=== PATIENT | male | born 1945 | race Caucasian/White ===

== ENCOUNTER 2017-10-13 00:43 | Inpatient (IN) | payer OTHER ==
[2017-10-13] VITALS (15 sets, daily range): BP systolic 73–152; BP diastolic 57–106
[~2017-10-13] VITALS: Ht 167.6 cm; Wt 135.9 kg
[~2017-10-13 00:43] MED LIST: ADVAIR 250/501 DISK IH; ALTACE10 MG PO; ATORVASTATIN CA40 MG PO; Aspirin E.C. PO; DIGOXIN125 MCG PO; Habitrol,Nicoderm CQ TD; LEXAPRO10 MG PO; Levaquin PO; NAVANE5 MG PO; PROVENTIL HFA6.7 GM IH; RANITIDINE HCL300 MG PO; SPIRIVA1 INHALATI IH; predniSONE PO
[2017-10-13 01:57] LABS: HEMATOCRIT 44.6 % (38.0-50.0); MCH 30.4 PG (29.0-34.0); MCHC 31.4 G/DL (30.0-36.0); PLATELET COUNT 190 K/uL (156-360); RBC DIS.WIDTH-CV 13.3 % (11.8-14.6); WHITE BLOOD COUNT 12.6 K/uL (4.1-10.2)
[2017-10-13 02:08] LABS: ALBUMIN 3.8 g/dL (3.2-4.8); CHLORIDE 99 mEq/L (99-109); POTASSIUM 4.4 mEq/L (3.7-5.4); SODIUM 137 mEq/L (136-147)
[2017-10-13 02:09] LABS: MAGNESIUM 2.5 mg/dL (1.3-2.7)
[2017-10-13 02:11] LABS: GLUCOSE 205 mg/dL (70-99); TOTAL PROTEIN 6.7 g/dL (6.4-8.3)
[2017-10-13 02:13] LABS: TOTAL BILIRUBIN 0.5 mg/dL (0.0-1.0)
[2017-10-13 02:14] LABS: ALKALINE PHOSPHATASE 116 IU/L (3-129)
[2017-10-13 02:15] LABS: CREATININE 1.2 mg/dL (0.6-1.3); GFR ESTIMATE (CALCULATED) > 59 mL/min/ (58.99-99999)
[2017-10-13 02:16] LABS: AST (GOT) 32 IU/L (2-34); UREA NITROGEN (BUN) 12 mg/dL (9-23)
[2017-10-13 02:17] LABS: ALT (GPT) 29 IU/L (3-49)
[2017-10-13 02:18] LABS: CREATINE KINASE 257 IU/L (1-294); LIPASE 6 U/L (1.0-51.0); TROP-I INTERPRETATION NEGATIVE; TROPONIN-I 0.06 ng/mL (0.0-0.30)
[2017-10-13 02:52] LABS: BASE EXCESS 1.3 mEq/L (-3 to +3); BICARBONATE 30.7 mEq/L (22-26); CARBOXY HGB 1.8 % (0-5); COMMENTS - BLOOD GASES C+A+; DEVICE NIV; FI02 100 %; METHEMOGLOBIN 1.2 % (0-1.5); MODE SPONT; PCO2 70 mm Hg (35-45); PEEP 8 CM/H20; PO2 498 mm Hg (80-100); PRES. SUPPORT 15 CM/H2O; SITE RR; TOTAL RESP RATE 21 resp/min; pH 7.25 (7.35-7.45)
[2017-10-13 05:47] LABS: COMMENTS - BLOOD GASES C+; DEVICE NIV; FI02 30 %; MODE SPONT; SITE RR; TOTAL RESP RATE 17 resp/min
[2017-10-13 05:49] LABS: PCO2 61 mm Hg (35-45); PO2 98 mm Hg (80-100); pH 7.29 (7.35-7.45)
[2017-10-13 05:50] LABS: BASE EXCESS 1.1 mEq/L (-3 to +3); BICARBONATE 29.3 mEq/L (22-26); CARBOXY HGB 1.6 % (0-5); METHEMOGLOBIN 1.4 % (0-1.5); O2 SATURATION (CALCULATED) 98.1 % (95-99)
[2017-10-13 23:29] LABS: APPEARANCE CLEAR ((CLEAR)); BILIRUBIN NEGATIVE; BLOOD LARGE; COLOR YELLOW ((YELLOW)); GLUCOSE (STRIP) NEGATIVE; KETONES NEGATIVE; LEUKOCYTES NEGATIVE; NITRITE NEGATIVE; PROTEIN (STRIP) 30; SPECIFIC GRAVITY 1.025 (1.000-1.030); UROBILINOGEN 0.2 MG/DL (0.2-1.0)
[2017-10-13 23:31] LABS: BACTERIA NONE SEEN /HPF; EPITHELIAL CELLS NONE SEEN /HPF; MUCUS TRACE /LPF; RED BLOOD CELLS 0-5 /HPF (0-5); WHITE BLOOD CELLS 0-5 /HPF (0-5)
[2017-10-14] VITALS (20 sets, daily range): BP systolic 94–149; BP diastolic 60–117
[2017-10-14 05:20] LABS: HEMATOCRIT 44.2 % (38.0-50.0); MCH 29.3 PG (29.0-34.0); MCHC 29.4 G/DL (30.0-36.0); MCV 99.5 FL (86-99); PLATELET COUNT 191 K/uL (156-360); RBC DIS.WIDTH-CV 13.5 % (11.8-14.6); RBC DIS.WIDTH-SD 50.1 % (39-53); RED BLOOD COUNT 4.44 M/uL (4.00-5.50); WHITE BLOOD COUNT 9.7 K/uL (4.1-10.2)
[2017-10-14 05:52] LABS: CHLORIDE 101 MEQ/L (99-109); CREATININE 1.3 MG/DL (0.6-1.3); GFR ESTIMATE (CALCULATED) 58 mL/min/ (58.99-99999); GLUCOSE 152 mg/dL (70-99); POTASSIUM 5.2 MEQ/L (3.7-5.4); SODIUM 137 MEQ/L (136-147); UREA NITROGEN (BUN) 23 mg/dL (9-23)
[2017-10-14 08:25] LABS: COMMENTS - BLOOD GASES A+C+; DEVICE NC; O2 FLOW 6 L/MIN; SITE RR; TOTAL RESP RATE 20 resp/min
[2017-10-14 08:26] LABS: BASE EXCESS -0.3 mEq/L (-3 to +3); BICARBONATE 29.8 mEq/L (22-26); CARBOXY HGB 1.5 % (0-5); METHEMOGLOBIN 1.2 % (0-1.5); O2 SATURATION (CALCULATED) 95.9 % (95-99); PCO2 78 mm Hg (35-45); PO2 70 mm Hg (80-100); pH 7.19 (7.35-7.45)
[2017-10-14 08:56] LABS: COMMENTS - BLOOD GASES A+C+; DEVICE 980; FI02 40 %; MODE NIV; PEEP 8 CM/H20; PRES. SUPPORT 15 CM/H2O; SITE RR; TOTAL RESP RATE 15 resp/min
[2017-10-14 08:57] LABS: BASE EXCESS 0.2 mEq/L (-3 to +3); BICARBONATE 29.9 mEq/L (22-26); CARBOXY HGB 1.6 % (0-5); METHEMOGLOBIN 0.8 % (0-1.5); PCO2 73 mm Hg (35-45); PO2 94 mm Hg (80-100); pH 7.22 (7.35-7.45)
[2017-10-14 12:23] LABS: HIGH-SENS C-REACTIVE PROTEIN > 8.00 MG/DL (0.02-0.20)
[2017-10-14 15:39] LABS: COMMENTS - BLOOD GASES A+C+; SITE RR
[2017-10-14 15:40] LABS: DEVICE 980; FI02 40 %; MODE NIV; PCO2 65 mm Hg (35-45); PEEP 8 CM/H20; PRES. SUPPORT 18 CM/H2O; TOTAL RESP RATE 15 resp/min; pH 7.25 (7.35-7.45)
[2017-10-14 15:41] LABS: BASE EXCESS -0.4 mEq/L (-3 to +3); BICARBONATE 28.5 mEq/L (22-26); CARBOXY HGB 1.6 % (0-5); METHEMOGLOBIN 1.4 % (0-1.5); O2 SATURATION (CALCULATED) 94.8 % (95-99); PO2 81 mm Hg (80-100)
[2017-10-15] VITALS (20 sets, daily range): BP systolic 123–167; BP diastolic 65–125
[2017-10-15 08:30] LABS: BASOPHIL (%) 0.1 % (0-1); EOSINOPHIL (%) 0 % (0-5); HEMATOCRIT 44.2 % (38.0-50.0); HEMOGLOBIN 13.2 G/DL (12.5-16.6); IMMATURE GRANULOCYTE (%) 0.3 % (0.0-0.7); LYMPHOCYTE COUNT 0.6 K/uL (1.0-2.8); MCH 29.4 PG (29.0-34.0); MCHC 29.9 G/DL (30.0-36.0); MCV 98.4 FL (86-99); MONOCYTE (%) 5.8 % (3-12); MONOCYTE COUNT 0.6 K/uL (0-0.8); NEUTROPHIL (%) 87.8 % (45-76); NEUTROPHIL COUNT 8.3 K/uL (1.8-6.4); PLATELET COUNT 210 K/uL (156-360); RBC DIS.WIDTH-CV 13.4 % (11.8-14.6); RBC DIS.WIDTH-SD 48.5 % (39-53); RED BLOOD COUNT 4.49 M/uL (4.00-5.50); WHITE BLOOD COUNT 9.4 K/uL (4.1-10.2)
[2017-10-15 08:31] LABS: COMMENTS - BLOOD GASES A+C+; DEVICE NC; O2 FLOW 2 L/MIN; SITE RR; TOTAL RESP RATE 22 resp/min
[2017-10-15 08:32] LABS: CARBOXY HGB 1.6 % (0-5); PCO2 65 mm Hg (35-45); PO2 62 mm Hg (80-100); pH 7.29 (7.35-7.45)
[2017-10-15 08:33] LABS: BASE EXCESS 2.8 mEq/L (-3 to +3); BICARBONATE 31.3 mEq/L (22-26)
[2017-10-15 08:37] LABS: ALBUMIN 3.3 G/DL (3.2-4.8); ALKALINE PHOSPHATASE 71 IU/L (3-129); ALT (GPT) 48 IU/L (3-49); AST (GOT) 163 IU/L (2-34); CHLORIDE 102 MEQ/L (99-109); GFR ESTIMATE (CALCULATED) > 59 mL/min/ (58.99-99999); GLUCOSE 159 mg/dL (70-99); MAGNESIUM 2.5 mg/dl (1.3-2.7); POTASSIUM 4.9 MEQ/L (3.7-5.4); SODIUM 140 MEQ/L (136-147); TOTAL BILIRUBIN 0.4 MG/DL (0.0-1.0); TOTAL PROTEIN 6.1 G/DL (6.4-8.3); UREA NITROGEN (BUN) 31 mg/dL (9-23)
[2017-10-15] MEDS ORDERED: LEXAPRO10 MG PO (14:36)
[2017-10-15] MEDS ORDERED: KLOR-CON 1010 ME1 PO (14:36)
[2017-10-15] MEDS ORDERED: LASIX40 MG PO (14:36)
[2017-10-15] MEDS ORDERED: ERGOCALCIF50000 UNIT PO (14:37)
[2017-10-16] VITALS (24 sets, daily range): BP systolic 91–165; BP diastolic 51–142
[2017-10-16 05:26] LABS: BASOPHIL (%) 0 % (0-1); EOSINOPHIL (%) 0 % (0-5); HEMOGLOBIN 13.8 G/DL (12.5-16.6); IMMATURE GRANULOCYTE (%) 0.3 % (0.0-0.7); LYMPHOCYTE (%) 10.2 % (15-42); LYMPHOCYTE COUNT 0.7 K/uL (1.0-2.8); MCH 29.2 PG (29.0-34.0); MCV 97.5 FL (86-99); MONOCYTE COUNT 0.5 K/uL (0-0.8); NEUTROPHIL (%) 82.5 % (45-76); NEUTROPHIL COUNT 5.3 K/uL (1.8-6.4); PLATELET COUNT 208 K/uL (156-360); RBC DIS.WIDTH-CV 13.3 % (11.8-14.6); RED BLOOD COUNT 4.72 M/uL (4.00-5.50); WHITE BLOOD COUNT 6.5 K/uL (4.1-10.2)
[2017-10-16 06:05] LABS: ALBUMIN 3.2 G/DL (3.2-4.8); ALKALINE PHOSPHATASE 64 IU/L (3-129); ALT (GPT) 47 IU/L (3-49); AST (GOT) 117 IU/L (2-34); CHLORIDE 103 MEQ/L (99-109); CREATININE 0.9 MG/DL (0.6-1.3); GFR ESTIMATE (CALCULATED) > 59 mL/min/ (58.99-99999); GLUCOSE 152 mg/dL (70-99); MAGNESIUM 2.7 mg/dl (1.3-2.7); PHOSPHORUS 2.5 mg/dL (2.5-4.9); POTASSIUM 4.9 MEQ/L (3.7-5.4); SODIUM 140 MEQ/L (136-147); TOTAL BILIRUBIN 0.4 MG/DL (0.0-1.0); TOTAL PROTEIN 5.9 G/DL (6.4-8.3); UREA NITROGEN (BUN) 30 mg/dL (9-23)
[2017-10-16 07:44] LABS: CARBOXY HGB 1.4 % (0-5); PCO2 57 mm Hg (35-45); PO2 72 mm Hg (80-100); pH 7.37 (7.35-7.45)
[2017-10-16 07:45] LABS: BASE EXCESS 5.9 mEq/L (-3 to +3); COMMENTS - BLOOD GASES A+C+; DEVICE 840; FI02 30 %; MODE SPONT; PEEP 5 CM/H20; PRES. SUPPORT 12 CM/H2O; SITE RR; TOTAL RESP RATE 20 resp/min
[2017-10-17] VITALS (21 sets, daily range): BP systolic 90–163; BP diastolic 43–141
[2017-10-17 05:14] LABS: BASOPHIL (%) 0.1 % (0-1); EOSINOPHIL (%) 0 % (0-5); HEMATOCRIT 45.9 % (38.0-50.0); IMMATURE GRANULOCYTE (%) 0.3 % (0.0-0.7); LYMPHOCYTE (%) 9.6 % (15-42); LYMPHOCYTE COUNT 0.9 K/uL (1.0-2.8); MCH 29.6 PG (29.0-34.0); MCHC 30.5 G/DL (30.0-36.0); MONOCYTE (%) 3.6 % (3-12); MONOCYTE COUNT 0.3 K/uL (0-0.8); NEUTROPHIL (%) 86.4 % (45-76); NEUTROPHIL COUNT 7.6 K/uL (1.8-6.4); PLATELET COUNT 217 K/uL (156-360); RBC DIS.WIDTH-CV 13.4 % (11.8-14.6); RBC DIS.WIDTH-SD 48.2 % (39-53); RED BLOOD COUNT 4.73 M/uL (4.00-5.50); WHITE BLOOD COUNT 8.8 K/uL (4.1-10.2)
[2017-10-17 06:37] LABS: ALBUMIN 3.4 G/DL (3.2-4.8); ALKALINE PHOSPHATASE 64 IU/L (3-129); ALT (GPT) 50 IU/L (3-49); AST (GOT) 87 IU/L (2-34); CHLORIDE 101 MEQ/L (99-109); CREATININE 1.1 MG/DL (0.6-1.3); GFR ESTIMATE (CALCULATED) > 59 mL/min/ (58.99-99999); GLUCOSE 141 mg/dL (70-99); MAGNESIUM 2.5 mg/dl (1.3-2.7); POTASSIUM 4.9 MEQ/L (3.7-5.4); SODIUM 140 MEQ/L (136-147); TOTAL PROTEIN 6.4 G/DL (6.4-8.3); UREA NITROGEN (BUN) 30 mg/dL (9-23)
[2017-10-17 06:38] LABS: PHOSPHORUS 3.4 mg/dL (2.5-4.9); TOTAL BILIRUBIN 0.5 MG/DL (0.0-1.0)
[2017-10-18] VITALS (19 sets, daily range): BP systolic 81–143; BP diastolic 34–112
[2017-10-18 06:22] LABS: BASOPHIL (%) 0.1 % (0-1); EOSINOPHIL (%) 0 % (0-5); HEMATOCRIT 45.6 % (38.0-50.0); HEMOGLOBIN 14.3 G/DL (12.5-16.6); IMMATURE GRANULOCYTE (%) 0.5 % (0.0-0.7); LYMPHOCYTE (%) 10.7 % (15-42); LYMPHOCYTE COUNT 0.9 K/uL (1.0-2.8); MCH 30.3 PG (29.0-34.0); MCHC 31.4 G/DL (30.0-36.0); MCV 96.6 FL (86-99); MONOCYTE (%) 4.3 % (3-12); MONOCYTE COUNT 0.4 K/uL (0-0.8); NEUTROPHIL (%) 84.4 % (45-76); NEUTROPHIL COUNT 7.1 K/uL (1.8-6.4); PLATELET COUNT 180 K/uL (156-360); RBC DIS.WIDTH-CV 13.4 % (11.8-14.6); RBC DIS.WIDTH-SD 47.9 % (39-53); RED BLOOD COUNT 4.72 M/uL (4.00-5.50); WHITE BLOOD COUNT 8.4 K/uL (4.1-10.2)
[2017-10-18 06:31] LABS: CHLORIDE 104 mEq/L (99-109); POTASSIUM 4.9 mEq/L (3.7-5.4); SODIUM 140 mEq/L (136-147)
[2017-10-18 06:35] LABS: ALBUMIN 3.4 g/dL (3.2-4.8)
[2017-10-18 06:36] LABS: MAGNESIUM 2.2 mg/dL (1.3-2.7); TOTAL BILIRUBIN 0.4 mg/dL (0.0-1.0)
[2017-10-18 06:38] LABS: GLUCOSE 183 mg/dL (70-99); TOTAL PROTEIN 5.8 g/dL (6.4-8.3)
[2017-10-18 06:39] LABS: AST (GOT) 78 IU/L (2-34)
[2017-10-18 06:41] LABS: PHOSPHORUS 3.3 mg/dL (2.5-4.9)
[2017-10-18 06:42] LABS: ALKALINE PHOSPHATASE 74 IU/L (3-129); CREATININE 1.1 mg/dL (0.6-1.3); GFR ESTIMATE (CALCULATED) > 59 mL/min/ (58.99-99999)
[2017-10-18 06:43] LABS: UREA NITROGEN (BUN) 27 mg/dL (9-23)
[2017-10-18 06:45] LABS: ALT (GPT) 60 IU/L (3-49)
[2017-10-18 18:22] LABS: INTER. NORMALIZED RATIO 1.2
[2017-10-18 18:25] LABS: PTT 92.2 SEC (25-37)
[2017-10-19] VITALS (19 sets, daily range): BP systolic 88–140; BP diastolic 52–96
[2017-10-19 07:18] LABS: BASOPHIL (%) 0.1 % (0-1); EOSINOPHIL (%) 0.1 % (0-5); HEMATOCRIT 46.4 % (38.0-50.0); HEMOGLOBIN 14.8 G/DL (12.5-16.6); IMMATURE GRANULOCYTE (%) 0.7 % (0.0-0.7); LYMPHOCYTE (%) 8.9 % (15-42); LYMPHOCYTE COUNT 1.2 K/uL (1.0-2.8); MCHC 31.9 G/DL (30.0-36.0); MCV 93.9 FL (86-99); MONOCYTE (%) 4.8 % (3-12); MONOCYTE COUNT 0.7 K/uL (0-0.8); NEUTROPHIL (%) 85.4 % (45-76); NEUTROPHIL COUNT 11.5 K/uL (1.8-6.4); NRBC (%) 0.1 /100 WBC (0-0); RBC DIS.WIDTH-CV 13.4 % (11.8-14.6); RBC DIS.WIDTH-SD 46.5 % (39-53); RED BLOOD COUNT 4.94 M/uL (4.00-5.50); WHITE BLOOD COUNT 13.5 K/uL (4.1-10.2)
[2017-10-19 07:19] LABS: PLATELET COUNT 242 K/uL (156-360)
[2017-10-19 07:34] LABS: INTER. NORMALIZED RATIO 1.1
[2017-10-19 07:37] LABS: PTT 75.6 SEC (25-37)
[2017-10-19 07:46] LABS: ALBUMIN 3.5 G/DL (3.2-4.8); ALKALINE PHOSPHATASE 63 IU/L (3-129); ALT (GPT) 54 IU/L (3-49); AST (GOT) 52 IU/L (2-34); CHLORIDE 98 MEQ/L (99-109); CREATININE 1.1 MG/DL (0.6-1.3); GFR ESTIMATE (CALCULATED) > 59 mL/min/ (58.99-99999); GLUCOSE 146 mg/dL (70-99); MAGNESIUM 2.2 mg/dl (1.3-2.7); PHOSPHORUS 3.1 mg/dL (2.5-4.9); POTASSIUM 4.1 MEQ/L (3.7-5.4); SODIUM 135 MEQ/L (136-147); TOTAL PROTEIN 6.3 G/DL (6.4-8.3); UREA NITROGEN (BUN) 28 mg/dL (9-23)
[2017-10-19 07:48] LABS: TOTAL BILIRUBIN 0.7 MG/DL (0.0-1.0)
[2017-10-19 17:44] LABS: ALBUMIN 3.3 G/DL (3.2-4.8); ALKALINE PHOSPHATASE 55 IU/L (3-129); ALT (GPT) 50 IU/L (3-49); AST (GOT) 58 IU/L (2-34); CHLORIDE 102 MEQ/L (99-109); CREATININE 1.3 MG/DL (0.6-1.3); GFR ESTIMATE (CALCULATED) 58 mL/min/ (58.99-99999); POTASSIUM 4.8 MEQ/L (3.7-5.4); SODIUM 134 MEQ/L (136-147); TOTAL BILIRUBIN 0.6 MG/DL (0.0-1.0); TOTAL PROTEIN 6.2 G/DL (6.4-8.3); UREA NITROGEN (BUN) 39 mg/dL (9-23)
[2017-10-19 17:45] LABS: GLUCOSE 108 mg/dL (70-99)
[2017-10-20 04:15] VITALS: BP 127/66
[2017-10-20 05:15] LABS: BASOPHIL (%) 0.1 % (0-1); EOSINOPHIL (%) 0 % (0-5); HEMATOCRIT 45.5 % (38.0-50.0); IMMATURE GRANULOCYTE (%) 0.3 % (0.0-0.7); LYMPHOCYTE (%) 7.7 % (15-42); LYMPHOCYTE COUNT 0.8 K/uL (1.0-2.8); MCH 29.4 PG (29.0-34.0); MCHC 30.8 G/DL (30.0-36.0); MCV 95.4 FL (86-99); MONOCYTE (%) 2.8 % (3-12); MONOCYTE COUNT 0.3 K/uL (0-0.8); NEUTROPHIL (%) 89.1 % (45-76); NEUTROPHIL COUNT 9.2 K/uL (1.8-6.4); PLATELET COUNT 206 K/uL (156-360); RBC DIS.WIDTH-CV 13.4 % (11.8-14.6); RBC DIS.WIDTH-SD 47.4 % (39-53); RED BLOOD COUNT 4.77 M/uL (4.00-5.50); WHITE BLOOD COUNT 10.3 K/uL (4.1-10.2)
[2017-10-20 06:16] LABS: ALKALINE PHOSPHATASE 59 IU/L (3-129); ALT (GPT) 46 IU/L (3-49); AST (GOT) 41 IU/L (2-34); CHLORIDE 103 MEQ/L (99-109); CREATININE 1.2 MG/DL (0.6-1.3); GFR ESTIMATE (CALCULATED) > 59 mL/min/ (58.99-99999); GLUCOSE 159 mg/dL (70-99); MAGNESIUM 2.1 mg/dl (1.3-2.7); SODIUM 135 MEQ/L (136-147); TOTAL BILIRUBIN 0.5 MG/DL (0.0-1.0); TOTAL PROTEIN 5.8 G/DL (6.4-8.3); UREA NITROGEN (BUN) 43 mg/dL (9-23)
[2017-10-20 06:20] LABS: PHOSPHORUS 4.2 mg/dL (2.5-4.9)
[2017-10-20 08:32] VITALS: BP 102/60
[2017-10-20 11:28] VITALS: BP 82/0
[2017-10-20 20:15] VITALS: BP 95/62
[2017-10-20 23:41] VITALS: BP 95/58
[2017-10-21 04:27] VITALS: BP 116/65
[2017-10-21 05:53] LABS: BASOPHIL (%) 0 % (0-1); EOSINOPHIL (%) 0 % (0-5); HEMATOCRIT 43.8 % (38.0-50.0); HEMOGLOBIN 13.7 G/DL (12.5-16.6); IMMATURE GRANULOCYTE (%) 0.4 % (0.0-0.7); LYMPHOCYTE (%) 7.6 % (15-42); LYMPHOCYTE COUNT 0.8 K/uL (1.0-2.8); MCH 29.1 PG (29.0-34.0); MCHC 31.3 G/DL (30.0-36.0); MCV 93.2 FL (86-99); MONOCYTE (%) 2.9 % (3-12); MONOCYTE COUNT 0.3 K/uL (0-0.8); NEUTROPHIL (%) 89.1 % (45-76); NEUTROPHIL COUNT 8.8 K/uL (1.8-6.4); PLATELET COUNT 206 K/uL (156-360); RBC DIS.WIDTH-CV 13.3 % (11.8-14.6); RBC DIS.WIDTH-SD 45.8 % (39-53); WHITE BLOOD COUNT 9.9 K/uL (4.1-10.2)
[2017-10-21 06:16] LABS: CHLORIDE 99 MEQ/L (99-109); CREATININE 1.5 MG/DL (0.6-1.3); GFR ESTIMATE (CALCULATED) 49 mL/min/ (58.99-99999); GLUCOSE 136 mg/dL (70-99); POTASSIUM 4.4 MEQ/L (3.7-5.4); SODIUM 132 MEQ/L (136-147); UREA NITROGEN (BUN) 50 mg/dL (9-23)
[2017-10-21 07:30] VITALS: BP 132/60
[2017-10-21 11:29] VITALS: BP 132/64
[2017-10-21 16:15] VITALS: BP 142/66
[2017-10-21 18:50] VITALS: BP 136/86
[2017-10-21 22:45] VITALS: BP 107/65
[2017-10-22 03:30] VITALS: BP 113/74
[2017-10-22 05:47] LABS: CHLORIDE 98 MEQ/L (99-109); CREATININE 1.1 MG/DL (0.6-1.3); GFR ESTIMATE (CALCULATED) > 59 mL/min/ (58.99-99999); GLUCOSE 153 mg/dL (70-99); POTASSIUM 4.3 MEQ/L (3.7-5.4); SODIUM 133 MEQ/L (136-147); UREA NITROGEN (BUN) 35 mg/dL (9-23)
[2017-10-22 08:00] VITALS: BP 157/72
[2017-10-22 11:32] VITALS: BP 144/64
[2017-10-22 16:58] VITALS: BP 169/73
[2017-10-22] MEDS ORDERED: XARELTO20 MG PO (19:49)
[2017-10-22] MEDS ORDERED: DUONEB 2.5-0.5 M3 ML AEROSOL (19:49)
[2017-10-22] MEDS ORDERED: CORDARONE200 MG PO (19:50)
[2017-10-22] MEDS ORDERED: CARVEDILOL3.125 MG PO (19:50)
[2017-10-22] MEDS ORDERED: QUETIAPINE FUMA25 MG PO (19:51)
[2017-10-22] MEDS ORDERED: ASPIR-LOW81 MG PO (19:51)
[2017-10-22] MEDS ORDERED: DULERA 100 MCG/13 GM IH (19:52)
[2017-10-22] MEDS ORDERED: DOCUSATE SODIU100 MG PO (19:52)
[2017-10-22] MEDS ORDERED: PREDNISONE10 M1 PO (19:54)
== END 2017-10-22 21:55 | DRG 189 ==
LOC: EME → EDBD 00:43 → EDOF 04:09 → 4WEST 04:09 → ENRESERV 04:11 → 4WEST 04:53 → ENRESERV 10-19 17:14 → 4EAST 10-19 19:56
PROVIDERS: Emergency Medicine; Family Medicine Sports Medicine; Internal Medicine; Internal Medicine Cardiovascular Disease; Obstetrics & Gynecology; Surgery
DX: J96.21 Acute and chronic respiratory failure with hypoxia (principal); J44.1 Chronic obstructive pulmonary disease with (acute) exacerbation; W19.XXXA Unspecified fall, initial encounter; F17.210 Nicotine dependence, cigarettes, uncomplicated; I48.92 Unspecified atrial flutter; I48.2 Chronic atrial fibrillation; F31.9 Bipolar disorder, unspecified; F10.11 Alcohol abuse, in remission; I50.9 Heart failure, unspecified; I11.0 Hypertensive heart disease with heart failure; E78.5 Hyperlipidemia, unspecified; K21.9 Gastro-esophageal reflux disease without esophagitis; Z82.49 Family history of ischemic heart disease and other diseases of the circulatory system; Z79.82 Long term (current) use of aspirin; Z79.899 Other long term (current) drug therapy; Z88.0 Allergy status to penicillin; L03.116 Cellulitis of left lower limb; E87.2 Acidosis; I87.2 Venous insufficiency (chronic) (peripheral); E66.2 Morbid (severe) obesity with alveolar hypoventilation; Z68.42 Body mass index [BMI] 45.0-49.9, adult
CPT/HCPCS: 36600; 71045; 71275; 80048; 80053; 80162; 81003; 82550; 82803; 82948; 83605; 83690; 83735; 83880; 84100; 84145 90; 84443; 84484; 85025; 85027; 85610; 85730; 86141; 87040; 87641; 93005; 93306; 93312; 93970; 94002; 94003; 94640; 94640 76; 94644; 94660; 94667; 94760; 94799; 97530 GP; 99202; 99281; 99285; C1751; J0330; J1160; J1644; J1940; J1956; J2930; J3370; J7030; J7040; J7050; J7512; S0028

== ENCOUNTER 2017-11-03 09:57 | Emergency (ER) | payer OTHER ==
[~2017-11-03] VITALS: Ht 175.3 cm; Wt 130.5 kg
[~2017-11-03 09:57] MED LIST changes: +ASPIR-LOW81 MG PO; +CARVEDILOL3.125 MG PO; +CORDARONE200 MG PO; +DOCUSATE SODIU100 MG PO; +DULERA 100 MCG/13 GM IH; +DUONEB 2.5-0.5 M3 ML AEROSOL; +ERGOCALCIF50000 UNIT PO; +KLOR-CON 1010 ME1 PO; +LASIX40 MG PO; +PREDNISONE10 M1 PO; +QUETIAPINE FUMA25 MG PO; +XARELTO20 MG PO
[2017-11-03 10:37] LABS: BASOPHIL (%) 0.4 % (0-1); EOSINOPHIL (%) 2.6 % (0-5); EOSINOPHIL COUNT 0.2 K/uL (0-0.3); HEMATOCRIT 37.8 % (38.0-50.0); HEMOGLOBIN 11.6 G/DL (12.5-16.6); IMMATURE GRANULOCYTE (%) 0.2 % (0.0-0.7); LYMPHOCYTE (%) 17.3 % (15-42); MCH 30.1 PG (29.0-34.0); MCHC 30.7 G/DL (30.0-36.0); MCV 97.9 FL (86-99); MONOCYTE (%) 7.9 % (3-12); MONOCYTE COUNT 0.5 K/uL (0-0.8); NEUTROPHIL (%) 71.6 % (45-76); NEUTROPHIL COUNT 4.1 K/uL (1.8-6.4); RBC DIS.WIDTH-CV 13.3 % (11.8-14.6); RBC DIS.WIDTH-SD 47.8 % (39-53); RED BLOOD COUNT 3.86 M/uL (4.00-5.50); WHITE BLOOD COUNT 5.7 K/uL (4.1-10.2)
[2017-11-03 10:38] LABS: PLATELET COUNT 134 K/uL (156-360)
[2017-11-03 10:46] LABS: ALBUMIN 3.2 g/dL (3.2-4.8); CHLORIDE 98 mEq/L (99-109); POTASSIUM 4.4 mEq/L (3.7-5.4); SODIUM 139 mEq/L (136-147)
[2017-11-03 10:49] LABS: GLUCOSE 130 mg/dL (70-99); TOTAL PROTEIN 5.7 g/dL (6.4-8.3)
[2017-11-03 10:51] LABS: TOTAL BILIRUBIN 0.6 mg/dL (0.0-1.0)
[2017-11-03 10:52] LABS: ALKALINE PHOSPHATASE 107 IU/L (3-129); CREATININE 1.2 mg/dL (0.6-1.3); GFR ESTIMATE (CALCULATED) > 59 mL/min/ (58.99-99999)
[2017-11-03 10:53] LABS: UREA NITROGEN (BUN) 15 mg/dL (9-23)
[2017-11-03 10:54] LABS: AST (GOT) 35 IU/L (2-34)
[2017-11-03 10:55] LABS: ALT (GPT) 48 IU/L (3-49)
[2017-11-03 12:23] LABS: APPEARANCE CLEAR ((CLEAR)); BILIRUBIN NEGATIVE; BLOOD NEGATIVE; COLOR YELLOW ((YELLOW)); GLUCOSE (STRIP) NEGATIVE; KETONES NEGATIVE; LEUKOCYTES NEGATIVE; NITRITE NEGATIVE; PROTEIN (STRIP) 30; SPECIFIC GRAVITY 1.014 (1.000-1.030); UCUL ADDED? NO
[2017-11-03 12:25] LABS: TROP-I INTERPRETATION NEGATIVE; TROPONIN-I 0.02 ng/mL (0.0-0.30)
[2017-11-03 15:50] VITALS: BP 114/53
== END 2017-11-03 15:51 ==
LOC: EME 09:57
PROVIDERS: Emergency Medicine
DX: F91.9 Conduct disorder, unspecified (principal); E78.5 Hyperlipidemia, unspecified; K21.9 Gastro-esophageal reflux disease without esophagitis; J44.9 Chronic obstructive pulmonary disease, unspecified; E11.9 Type 2 diabetes mellitus without complications; I11.0 Hypertensive heart disease with heart failure; I50.9 Heart failure, unspecified; Z87.891 Personal history of nicotine dependence; Z88.0 Allergy status to penicillin
CPT/HCPCS: 71045; 80053; 81003; 83605; 84484; 85025; 93005; 99281; 99284

== ENCOUNTER 2017-12-04 17:36 | Inpatient (IN) | payer OTHER ==
[~2017-12-04] VITALS: Ht 175.3 cm; Wt 124.6 kg
[~2017-12-04 17:36] MED LIST changes: +RANITIDINE HCL150 MG PO; -RANITIDINE HCL300 MG PO
[2017-12-04 17:54] LABS: BASOPHIL (%) 0 % (0-1); EOSINOPHIL (%) 0.7 % (0-5); HEMATOCRIT 25.6 % (38.0-50.0); HEMOGLOBIN 7.9 G/DL (12.5-16.6); IMMATURE GRANULOCYTE (%) 1.6 % (0.0-0.7); LYMPHOCYTE (%) 21.9 % (15-42); LYMPHOCYTE COUNT 0.9 K/uL (1.0-2.8); MCHC 30.9 G/DL (30.0-36.0); MCV 103.6 FL (86-99); MONOCYTE (%) 9.3 % (3-12); MONOCYTE COUNT 0.4 K/uL (0-0.8); NEUTROPHIL (%) 66.5 % (45-76); NEUTROPHIL COUNT 2.9 K/uL (1.8-6.4); NRBC (%) 2.1 /100 WBC (0-0); PLATELET COUNT 109 K/uL (156-360); RBC DIS.WIDTH-CV 17.2 % (11.8-14.6); RBC DIS.WIDTH-SD 63.7 % (39-53); RED BLOOD COUNT 2.47 M/uL (4.00-5.50); WHITE BLOOD COUNT 4.3 K/uL (4.1-10.2)
[2017-12-04 18:03] LABS: CHLORIDE 102 mEq/L (99-109); POTASSIUM 4.9 mEq/L (3.7-5.4); SODIUM 141 mEq/L (136-147)
[2017-12-04 18:05] LABS: GLUCOSE 150 mg/dL (70-99)
[2017-12-04 18:09] LABS: CREATININE 1.4 mg/dL (0.6-1.3); GFR ESTIMATE (CALCULATED) 53 mL/min/ (58.99-99999)
[2017-12-04 18:10] LABS: UREA NITROGEN (BUN) 33 mg/dL (9-23)
[2017-12-04 18:15] LABS: SITE RR
[2017-12-04 18:16] LABS: DEVICE MASK VENT; FI02 55 %
[2017-12-04 18:17] LABS: MODE SPONT; PEEP 5 CM/H20; PRES. SUPPORT 10 CM/H2O; TROP-I INTERPRETATION NEGATIVE; TROPONIN-I < 0.01 ng/mL (0.0-0.30)
[2017-12-04 18:18] LABS: BASE EXCESS 4.5 mEq/L (-3 to +3); BICARBONATE 34.3 mEq/L (22-26); CARBOXY HGB 2.4 % (0-5); COMMENTS - BLOOD GASES CR; METHEMOGLOBIN 0.4 % (0-1.5); PCO2 94 mm Hg (35-45); PO2 71 mm Hg (80-100); pH 7.17 (7.35-7.45)
[2017-12-04 18:56] LABS: HEMATOCRIT 23.1 % (38.0-50.0); HEMOGLOBIN 7.2 G/DL (12.5-16.6); MCHC 31.2 G/DL (30.0-36.0); MCV 102.7 FL (86-99); NRBC (%) 1.4 /100 WBC (0-0); PLATELET COUNT 104 K/uL (156-360); RBC DIS.WIDTH-CV 17.3 % (11.8-14.6); RBC DIS.WIDTH-SD 65.1 % (39-53); RED BLOOD COUNT 2.25 M/uL (4.00-5.50); WHITE BLOOD COUNT 3.6 K/uL (4.1-10.2)
[2017-12-04] MEDS ORDERED: AMIODARONE HCL200 MG PO (19:05)
[2017-12-04] MEDS ORDERED: CARVEDILOL3.125 MG PO (19:06)
[2017-12-04] MEDS ORDERED: ADULT ASPIRIN81 MG PO (19:07)
[2017-12-04] MEDS ORDERED: COLACE100 MG PO (19:07)
[2017-12-04] MEDS ORDERED: DULCOLAX10 MG PR (19:07)
[2017-12-04] MEDS ORDERED: HALDOL5 MG PO (19:09)
[2017-12-04] MEDS ORDERED: FLEET ENEMA-AD118 ML PR (19:09)
[2017-12-04] MEDS ORDERED: LISINOPRIL40 MG PO (19:10)
[2017-12-04] MEDS ORDERED: LORAZEPAM2 MG/1 M1 IV (19:10)
[2017-12-04] MEDS ORDERED: PHILLIPS'400 MG/5 M PO (19:11)
[2017-12-04] MEDS ORDERED: RISPERIDONE2 MG PO (19:12)
[2017-12-04] MEDS ORDERED: TYLENOL REGULA325 MG PO (19:13)
[2017-12-04] MEDS ORDERED: NICODERM CQ1 EAC2 TD (19:14)
[2017-12-04 19:47] LABS: DEVICE MASK VENT; FI02 55 %; PEEP 6 CM/H20; PRES. SUPPORT 18 CM/H2O
[2017-12-04 19:53] LABS: PCO2 76 mm Hg (35-45); PO2 66 mm Hg (80-100); pH 7.26 (7.35-7.45)
[2017-12-04 19:54] LABS: BICARBONATE 34.1 mEq/L (22-26); CARBOXY HGB 3.2 % (0-5); METHEMOGLOBIN 0.2 % (0-1.5); O2 SATURATION (CALCULATED) 97.8 % (95-99); SITE RR
[2017-12-04 20:45] LABS: ABS NEUTROPHIL COUNT 3.1; ANISOCYTOSIS 1+; BAND NEUTROPHILS 14.2 % (0-8.0); EOSINOPHIL ABS CT 0; HEMATOLOGY COMMENT 1 SN; LYMPHOCYTES 8.8 % (15.0-45.0); MACROCYTES 1+; MONOCYTES 4.4 % (0-9.0); MYELOCYTES 1.8 %; PLAT.SUFFICIENCY DECREASED; SEG.NEUTROPHILS 70.8 % (46.0-76.0); TARGET CELLS 1+
[2017-12-04 21:04] VITALS: BP 97/41
[2017-12-04 21:05] LABS: APPEARANCE CLEAR ((CLEAR)); BILIRUBIN NEGATIVE; BLOOD NEGATIVE; COLOR STRAW ((YELLOW)); GLUCOSE (STRIP) NEGATIVE; KETONES NEGATIVE; LEUKOCYTES NEGATIVE; NITRITE NEGATIVE; PROTEIN (STRIP) NEGATIVE; UCUL ADDED? NO; UROBILINOGEN 0.2 MG/DL (0.2-1.0)
[2017-12-04 21:26] VITALS: BP 104/44
[2017-12-04 22:15] VITALS: BP 94/67
[2017-12-04 22:29] VITALS: BP 103/37
[2017-12-04 22:51] VITALS: BP 89/54
[2017-12-04 23:19] VITALS: BP 96/42
[2017-12-05] VITALS (15 sets, daily range): BP systolic 73–127; BP diastolic 35–70
[2017-12-05 05:03] LABS: PTT 32.9 SEC (25-37)
[2017-12-05 05:07] LABS: INTER. NORMALIZED RATIO 1.3
[2017-12-05 05:12] LABS: HEMATOCRIT 28.3 % (38.0-50.0); MCH 31.2 PG (29.0-34.0); MCHC 32.5 G/DL (30.0-36.0); NRBC (%) 1.3 /100 WBC (0-0); PLATELET COUNT 119 K/uL (156-360); RBC DIS.WIDTH-SD 72.9 % (39-53); WHITE BLOOD COUNT 8.4 K/uL (4.1-10.2)
[2017-12-05 05:13] LABS: HEMOGLOBIN 9.2 G/DL (12.5-16.6); MCV 95.9 FL (86-99); RED BLOOD COUNT 2.95 M/uL (4.00-5.50)
[2017-12-05 05:21] LABS: CHLORIDE 103 mEq/L (99-109); POTASSIUM 5.1 mEq/L (3.7-5.4); SODIUM 143 mEq/L (136-147)
[2017-12-05 05:27] LABS: CREATININE 1.3 mg/dL (0.6-1.3); GFR ESTIMATE (CALCULATED) 58 mL/min/ (58.99-99999); UREA NITROGEN (BUN) 33 mg/dL (9-23)
[2017-12-05 05:36] LABS: GLUCOSE 74 mg/dL (70-99)
[2017-12-05 05:48] LABS: ANISOCYTOSIS 2+; BAND NEUTROPHILS 17.5 % (0-8.0); BASOPH.STIPPLING 1+; EOSINOPHIL ABS CT 0; LYMPHOCYTES 5.3 % (15.0-45.0); MACROCYTES 1+; METAMYELOCYTES 0.9 %; MONOCYTES 8.8 % (0-9.0); MYELOCYTES 1.7 %; NUCLEATED RBC'S 1.8; PLAT.SUFFICIENCY DECREASED; POLYCHROMASIA 1+; SEG.NEUTROPHILS 65.8 % (46.0-76.0)
[2017-12-05 20:09] LABS: HEMATOCRIT 26.1 % (38.0-50.0); HEMOGLOBIN 8.1 G/DL (12.5-16.6); MCV 96.7 FL (86-99)
[2017-12-05 22:52] LABS: FERRITIN 399 NG/ML (22-322)
[2017-12-05 23:27] LABS: IRON 76 MCG/DL (35-150)
[2017-12-06] VITALS (10 sets, daily range): BP systolic 101–145; BP diastolic 51–69
[2017-12-06 07:32] LABS: HEMATOCRIT 26.4 % (38.0-50.0); HEMOGLOBIN 8.2 G/DL (12.5-16.6); MCH 30.1 PG (29.0-34.0); MCHC 31.1 G/DL (30.0-36.0); MCV 97.1 FL (86-99); NRBC (%) 0.8 /100 WBC (0-0); PLATELET COUNT 108 K/uL (156-360); RBC DIS.WIDTH-CV 20.7 % (11.8-14.6); RBC DIS.WIDTH-SD 73.1 % (39-53); RED BLOOD COUNT 2.72 M/uL (4.00-5.50); WHITE BLOOD COUNT 8.8 K/uL (4.1-10.2)
[2017-12-06 08:04] LABS: CHLORIDE 103 MEQ/L (99-109); CREATININE 1.1 MG/DL (0.6-1.3); GFR ESTIMATE (CALCULATED) > 59 mL/min/ (58.99-99999); GLUCOSE 71 mg/dL (70-99); POTASSIUM 4.5 MEQ/L (3.7-5.4); SODIUM 144 MEQ/L (136-147); UREA NITROGEN (BUN) 24 mg/dL (9-23)
[2017-12-07 00:27] VITALS: BP 123/64
[2017-12-07 01:25] VITALS: BP 126/93
[2017-12-07 07:19] VITALS: BP 101/69
[2017-12-07 07:22] LABS: CHLORIDE 104 MEQ/L (99-109); CREATININE 1.2 MG/DL (0.6-1.3); GFR ESTIMATE (CALCULATED) > 59 mL/min/ (58.99-99999); GLUCOSE 89 mg/dL (70-99); POTASSIUM 4.2 MEQ/L (3.7-5.4); SODIUM 145 MEQ/L (136-147); UREA NITROGEN (BUN) 23 mg/dL (9-23)
[2017-12-07 07:41] LABS: BASOPHIL (%) 0.3 % (0-1); EOSINOPHIL (%) 0.2 % (0-5); HEMATOCRIT 33.5 % (38.0-50.0); IMMATURE GRANULOCYTE (%) 1.8 % (0.0-0.7); LYMPHOCYTE (%) 20.4 % (15-42); LYMPHOCYTE COUNT 1.9 K/uL (1.0-2.8); MCH 29.7 PG (29.0-34.0); MCHC 31.3 G/DL (30.0-36.0); MCV 94.9 FL (86-99); MONOCYTE (%) 7.8 % (3-12); MONOCYTE COUNT 0.7 K/uL (0-0.8); NEUTROPHIL (%) 69.5 % (45-76); NEUTROPHIL COUNT 6.5 K/uL (1.8-6.4); NRBC (%) 1.2 /100 WBC (0-0); PLATELET COUNT 132 K/uL (156-360); RBC DIS.WIDTH-CV 19.8 % (11.8-14.6); RBC DIS.WIDTH-SD 67.4 % (39-53); WHITE BLOOD COUNT 9.4 K/uL (4.1-10.2)
[2017-12-07 08:11] LABS: HEMOGLOBIN 10.5 G/DL (12.5-16.6); RED BLOOD COUNT 3.53 M/uL (4.00-5.50)
[2017-12-07 15:08] VITALS: BP 129/81
[2017-12-07 22:21] VITALS: BP 120/60
[2017-12-08 06:47] LABS: BASOPHIL (%) 0.1 % (0-1); EOSINOPHIL (%) 0 % (0-5); HEMATOCRIT 32.7 % (38.0-50.0); HEMOGLOBIN 10.3 G/DL (12.5-16.6); IMMATURE GRANULOCYTE (%) 1.9 % (0.0-0.7); LYMPHOCYTE (%) 22.8 % (15-42); LYMPHOCYTE COUNT 2.1 K/uL (1.0-2.8); MCH 30.4 PG (29.0-34.0); MCHC 31.5 G/DL (30.0-36.0); MCV 96.5 FL (86-99); MONOCYTE COUNT 0.7 K/uL (0-0.8); NEUTROPHIL (%) 67.2 % (45-76); NEUTROPHIL COUNT 6.2 K/uL (1.8-6.4); NRBC (%) 0.8 /100 WBC (0-0); PLATELET COUNT 124 K/uL (156-360); RBC DIS.WIDTH-CV 18.9 % (11.8-14.6); RBC DIS.WIDTH-SD 65.7 % (39-53); RED BLOOD COUNT 3.39 M/uL (4.00-5.50); WHITE BLOOD COUNT 9.3 K/uL (4.1-10.2)
[2017-12-08 07:04] VITALS: BP 129/61
[2017-12-08 07:10] LABS: CHLORIDE 106 MEQ/L (99-109); CREATININE 1.2 MG/DL (0.6-1.3); GFR ESTIMATE (CALCULATED) > 59 mL/min/ (58.99-99999); GLUCOSE 91 mg/dL (70-99); POTASSIUM 4.2 MEQ/L (3.7-5.4); SODIUM 145 MEQ/L (136-147); UREA NITROGEN (BUN) 27 mg/dL (9-23)
[2017-12-08 14:56] VITALS: BP 118/62
[2017-12-09 00:49] VITALS: BP 117/58
[2017-12-09 06:28] LABS: BASOPHIL (%) 0.1 % (0-1); EOSINOPHIL (%) 0.1 % (0-5); HEMATOCRIT 33.9 % (38.0-50.0); HEMOGLOBIN 10.5 G/DL (12.5-16.6); IMMATURE GRANULOCYTE (%) 1.3 % (0.0-0.7); LYMPHOCYTE (%) 20.8 % (15-42); LYMPHOCYTE COUNT 2.2 K/uL (1.0-2.8); MCH 30.3 PG (29.0-34.0); MCV 97.7 FL (86-99); MONOCYTE (%) 8.2 % (3-12); MONOCYTE COUNT 0.9 K/uL (0-0.8); NEUTROPHIL (%) 69.5 % (45-76); NEUTROPHIL COUNT 7.2 K/uL (1.8-6.4); NRBC (%) 0.6 /100 WBC (0-0); PLATELET COUNT 118 K/uL (156-360); RBC DIS.WIDTH-CV 18.3 % (11.8-14.6); RBC DIS.WIDTH-SD 64.3 % (39-53); RED BLOOD COUNT 3.47 M/uL (4.00-5.50); WHITE BLOOD COUNT 10.4 K/uL (4.1-10.2)
[2017-12-09 06:55] LABS: CHLORIDE 107 MEQ/L (99-109); CREATININE 1.1 MG/DL (0.6-1.3); GFR ESTIMATE (CALCULATED) > 59 mL/min/ (58.99-99999); GLUCOSE 84 mg/dL (70-99); POTASSIUM 4.6 MEQ/L (3.7-5.4); SODIUM 147 MEQ/L (136-147); UREA NITROGEN (BUN) 30 mg/dL (9-23)
[2017-12-09 07:40] VITALS: BP 150/65
[2017-12-09 08:12] LABS: THYROTROPIN (TSH) 3.8 MIU/L (0.4-5.5)
[2017-12-09 15:14] VITALS: BP 126/90
[2017-12-09 22:00] VITALS: BP 129/69
[2017-12-10 06:12] LABS: BASOPHIL (%) 0.1 % (0-1); EOSINOPHIL (%) 0.3 % (0-5); HEMATOCRIT 33.3 % (38.0-50.0); HEMOGLOBIN 10.3 G/DL (12.5-16.6); LYMPHOCYTE (%) 19.4 % (15-42); LYMPHOCYTE COUNT 1.9 K/uL (1.0-2.8); MCH 29.9 PG (29.0-34.0); MCHC 30.9 G/DL (30.0-36.0); MCV 96.8 FL (86-99); MONOCYTE (%) 8.6 % (3-12); MONOCYTE COUNT 0.8 K/uL (0-0.8); NEUTROPHIL (%) 70.6 % (45-76); NEUTROPHIL COUNT 6.8 K/uL (1.8-6.4); NRBC (%) 0.5 /100 WBC (0-0); PLATELET COUNT 114 K/uL (156-360); RBC DIS.WIDTH-CV 17.9 % (11.8-14.6); RBC DIS.WIDTH-SD 61.2 % (39-53); RED BLOOD COUNT 3.44 M/uL (4.00-5.50); WHITE BLOOD COUNT 9.6 K/uL (4.1-10.2)
[2017-12-10 06:46] LABS: CHLORIDE 106 MEQ/L (99-109); GFR ESTIMATE (CALCULATED) > 59 mL/min/ (58.99-99999); GLUCOSE 103 mg/dL (70-99); SODIUM 146 MEQ/L (136-147); UREA NITROGEN (BUN) 27 mg/dL (9-23)
[2017-12-10 08:10] VITALS: BP 95/51
[2017-12-10] MEDS ORDERED: DOXYCYCLINE HY100 MG PO (12:43)
[2017-12-10] MEDS ORDERED: PREDNISONE10 M1 PO (13:11)
== END 2017-12-10 15:26 | DRG 193 ==
LOC: EME 17:36 → EDOF 12-05 01:49 → 4WEST 12-05 01:49 → 5SOUTH 12-05 01:49 → ENRESERV 12-05 01:51 → 4WEST 12-05 03:24 → ENRESERV 12-05 18:04 → CANRESERV 12-05 18:27 → ENRESERV 12-05 18:27 → 4WEST 12-05 18:44 → ENRESERV 12-05 20:36 → 5SOUTH 12-05 22:25
PROVIDERS: Emergency Medicine; Family Medicine; Internal Medicine Gastroenterology; Surgery
PROC: 5A09357 Assistance with Respiratory Ventilation, Less than 24 Consecutive Hours, Continuous Positive Airway Pressure (ICD-10-PCS; principal; 2017-12-05)
PROC: 30233N1 Transfusion of Nonautologous Red Blood Cells into Peripheral Vein, Percutaneous Approach (ICD-10-PCS; 2017-12-05)
DX: J18.9 Pneumonia, unspecified organism (principal); J44.0 Chronic obstructive pulmonary disease with (acute) lower respiratory infection; Z66 Do not resuscitate; J96.21 Acute and chronic respiratory failure with hypoxia; J96.22 Acute and chronic respiratory failure with hypercapnia; K92.2 Gastrointestinal hemorrhage, unspecified; F03.90 Unspecified dementia, unspecified severity, without behavioral disturbance, psychotic disturbance, mood disturbance, and anxiety; D50.0 Iron deficiency anemia secondary to blood loss (chronic); T45.515A Adverse effect of anticoagulants, initial encounter; E78.5 Hyperlipidemia, unspecified; F32.9 Major depressive disorder, single episode, unspecified; I11.0 Hypertensive heart disease with heart failure; K21.9 Gastro-esophageal reflux disease without esophagitis; E87.2 Acidosis; E11.9 Type 2 diabetes mellitus without complications; I48.2 Chronic atrial fibrillation; I25.10 Atherosclerotic heart disease of native coronary artery without angina pectoris; R19.5 Other fecal abnormalities; I50.9 Heart failure, unspecified; I48.92 Unspecified atrial flutter; E66.2 Morbid (severe) obesity with alveolar hypoventilation; F41.9 Anxiety disorder, unspecified; I83.93 Asymptomatic varicose veins of bilateral lower extremities; D61.818 Other pancytopenia; Z88.0 Allergy status to penicillin; Z82.49 Family history of ischemic heart disease and other diseases of the circulatory system; Z79.01 Long term (current) use of anticoagulants; Z87.891 Personal history of nicotine dependence; Z68.41 Body mass index [BMI] 40.0-44.9, adult; Y92.098 Other place in other non-institutional residence as the place of occurrence of the external cause
CPT/HCPCS: 36600; 70450; 71045; 74230; 80048; 81003; 82140; 82728; 83540; 83605; 83735; 83880; 84443; 84484; 85014; 85018; 85025; 85025 91; 85027; 85610; 85730; 86850; 86900; 86901; 86920; 87040; 87641; 92611 GN; 93005; 94640; 94669; 94760; 94799; 99281; 99285; J0692; J1940; J7030; J7512; P9016